=== PATIENT | female | born 1965 | race Caucasian/White ===

== ENCOUNTER 2016-10-26 21:37 | Emergency (ER) | payer SELFPAY ==
[2016-10-26 22:50] LABS: Hematocrit 39 % (35-47); Hemoglobin 12.8 g/dl (12.0-16.0); Mean Corpuscular HGB Conc 33 g/dl (31-36); Mean Corpuscular Hemoglobin 28 pg (27-31); Mean Corpuscular Volume 85 fL (80-97); Mean Platelet Volume 8 um3 (7.4-10.4); Red Blood Count 4.59 10^6/ul (4.0-5.4); Red Cell Distribution Width 16 % (10.5-15)
[2016-10-26 23:04] LABS: Urine Bacteria Absent (Absent); Urine Bilirubin Negative (Negative); Urine Glucose Negative (Negative); Urine Nitrite Negative (Negative)
[2016-10-26 23:06] LABS: ALT 25 U/L (7-52); Albumin 4.5 g/dL (3.2-5.2); Alkaline Phosphatase 69 U/L (34-104); BUN/Creatinine Ratio 8.5 (8-20); Blood Urea Nitrogen 8 mg/dL (6-24); CO2 Carbon Dioxide 21 mmol/L (22-32); Calcium 8.7 mg/dL (8.6-10.3); Chloride 95 mmol/L (101-111); EGFR African American 80.1 (>60); EGFR Non-African American 62.3 (>60); Glucose 135 mg/dL (70-100); Sodium 128 mmol/L (133-145); Total Protein 7.5 g/dL (6.4-8.9)
[2016-10-26 23:23] LABS: Benzodiazepine Urine Screen None Detected (None Detect)
[2016-10-26 23:36] LABS: Acetaminophen < 15 mcg/mL; Alcohol 161 mg/dL (<10); Salicylate < 2.50 mg/dL (<30)
[2016-10-26 23:39] LABS: AST 23 U/L (13-39); Anion Gap 12 mmol/L (2-11)
[2016-10-27 00:15] VITALS: BP 158/95
[2016-10-27] MEDS ORDERED: NS 0.9% 1000 ML* 2,000 ML IV ONE (00:21)
[2016-10-27 00:32] LABS: TSH (Thyroid Stimulating Horm) 10.11 mcIU/mL (0.34-5.60)
--- NOTE | 2016-10-27 02:21 | ED ---
Lady Angelo SooYoung, scribed for Raphael Sherman on 10/26/16 at 2224 . Psychiatric Complaint - HPI Summary HPI Summary: A 51 y/o F WILMA presents to ED as 941. At bedside, pt states "making bad choices " and explains that she had been drinking ETOH, and wrote her will, contacted her friend stating she wanted her to be in charge of her will. Pt denies SI. Friend is present and was concerned pt might harm herself. Pt denies psychiatric PMHx, but has been under recent stress due to finances. Denies PMHx. Denies drugs. - History Of Current Complaint Chief Complaint: EDMentalHealth Time Seen by Provider: 10/26/16 21:57 Hx Obtained From: Patient, Family/Quality Control Engineer Onset/Duration: Still Present Timing: Constant Severity Initially: Moderate Severity Currently: Moderate Aggravating Factor(s): Recent Stress Has Suicidal: Denies: Thoughts Ingestion History: Type/Name Of Drug - ETOH - Allergies/Home Medications Allergies/Adverse Reactions: Allergies Allergy/AdvReac Type Severity Reaction Status Date / Time No Known Allergies Allergy Verified 03/28/12 14:49 PMH/Surg Hx/FS Hx/Imm Hx Previously Healthy: No Sensory History: Denies: Hx Eye Prosthesis, Hx Legally Blind Opthamlomology History: Denies: Hx Eye Prosthesis, Hx Legally Blind Psychiatric History: Reports: Hx Anxiety, Hx Depression Infectious Disease History: No Infectious Disease History: Denies: Traveled Outside the [place] in Last 30 Days - Family History Known Family History: Positive: Other - ETOH abuse - Social History Occupation: Unemployed - OTHER Lives: Alone Alcohol Use: Weekly Hx Substance Use: No Substance Use Type: Reports: None Hx Tobacco Use: Yes Smoking Status (MU): Former Smoker Review of Systems Positive: Other - pos: ETOH intoxication. Negative: Fever Psychological: Other - neg: SI All Other Systems Reviewed And Are Negative: Yes Physical Exam Triage Information Reviewed: Yes Vital Signs On Initial Exam: Initial Vitals Temp Pulse Resp BP Pulse Ox 99.4 F 87 16 155/89 98 10/26/16 21:47 10/26/16 21:47 10/26/16 21:47 10/26/16 21:47 10/26/16 21:47 Vital Signs Reviewed: Yes Appearance: Positive: Well-Appearing, No Pain Distress Skin: Positive: Warm, Skin Color Reflects Adequate Perfusion, Dry Head/Face: Positive: Normal Head/Face Inspection Eyes: Positive: EOMI, RUTHANN ENT: Positive: Normal ENT inspection Neck: Positive: Supple, Nontender Respiratory/Lung Sounds: Positive: Clear to Auscultation, Breath Sounds Present Cardiovascular: Positive: RRR, Pulses are Symmetrical in both Upper and Lower Extremities Abdomen Description: Positive: Nontender, Soft Musculoskeletal: Positive: Normal, Strength/ROM Intact Neurological: Positive: Normal, Sensory/Motor Intact, Alert, Oriented to Person Place, Time - Michelle Coma Scale Coma Scale Total: 15 Diagnostics - Vital Signs Vital Signs Temp Pulse Resp BP Pulse Ox 10/26/16 21:47 99.4 F 87 16 155/89 98 - Laboratory Result Diagrams: 10/26/16 22:40 10/26/16 22:40 Lab Statement: Any lab studies that have been ordered have been reviewed, and results considered in the medical decision making process. Course/Dx - Course Course Of Treatment: Pt medically cleared for [facility] at 0021. Discussed case with mental health recycling center operator, pt will be D/C home. Pt refused sodium in ED and was advised to follow up in one week with her PCP. - Differential Dx/Clinical Impression Provider Diagnosis: Depression, Alcohol intoxication, Hyponatremia Discharge - Discharge Plan Condition: Stable Disposition: HOME Patient Education Materials: Depression (ED), Suicide Prevention for Adults (ED ), Alcohol Dependence (ED) Referrals: [facility] [Other] - As Soon As Possible (Please consider going to the [facility] at your earliest convenience, during walk in hours, and request an assessment, for further support. Evaluation Process [facility] welcomes all who need an assessment. There are three parts to a standard evaluation: Part 1 (1-1.5 hours) Part 2 (1-1.5 hours) Physical assessment (45 minutes-1 hour) Generally, we offer walk-in evaluations on a first-come, first-served basis. Our current walk-in hours are: Saturday-: 8:30 a.m-6 p.m. Saturday: 8:30 a.m.-11 a.m. For more detailed information, please click here. ) No Primary Care Phys,NOPCP [Primary Care Provider] - The documentation as recorded by the Lady david SooYoung accurately reflects the service I personally performed and the decisions made by me, Raphael Sherman.
== END 2016-10-27 01:45 | disposition home or self-care (01) ==
LOC: ED 21:37
DX: F32.9 Major depressive disorder, single episode, unspecified (principal); F10.129 Alcohol abuse with intoxication, unspecified; E87.1 Hypo-osmolality and hyponatremia; Z87.891 Personal history of nicotine dependence
CPT/HCPCS: 36415; 80053; 80307; 80320; 80329; 81003; 81015; 84443; 85025; 87086; 99284; G0480